=== PATIENT | female | born 1975 | race Two or more races ===

== ENCOUNTER 2016-05-07 16:53 | Emergency (ER) | payer SELFPAY ==
[~2016-05-07] VITALS: Ht 175.3 cm; Wt 92.6 kg
[2016-05-07] MEDS ORDERED: PEN-VEE K,VEET500 MG PO (19:44)
[2016-05-07] MEDS ORDERED: NORCO 5/3251 TABLET PO (19:44)
[2016-05-07 20:03] VITALS: BP 154/88
== END 2016-05-07 20:16 | disposition home or self-care (01) ==
LOC: EXP 16:53 → EME 16:53 → EXP 20:16
PROC: 0C96XZZ Drainage of Lower Gingiva, External Approach (ICD-10-PCS; principal; 2016-05-07)
DX: K04.7 Periapical abscess without sinus (principal); F17.200 Nicotine dependence, unspecified, uncomplicated
CPT/HCPCS: 99281; 99283